=== PATIENT | male | born 1990 ===

== ENCOUNTER 2018-02-09 02:34 | Emergency (ER) | payer OTHER ==
[2018-02-09] MEDS ORDERED: Naproxen 550 mg Tab PO STA (03:10)
--- NOTE | 2018-02-09 03:12 | C.PDOC ---
History Of Present Illness 27 y/o male presents to the ED complaining of low back pain near the tailbone, onset 2 hours ago. Patient states he felt he injured the area while heavy lifting at work. Denies any fever, chills, incontinence of bowel or bladder, or focal weakness of extremities. PMD: none Time Seen by Provider: 02/09/18 03:02 Chief Complaint (Nursing): Back Pain History Per: Patient History/Exam Limitations: no limitations Onset/Duration Of Symptoms: Hrs (x2) Current Symptoms Are (Timing): Still Present Past Medical History Reviewed: Historical Data, Nursing Documentation, Vital Signs Vital Signs: Last Vital Signs Temp 98.8 F 02/09/18 02:44 Pulse 75 02/09/18 02:44 Resp 20 02/09/18 02:44 BP 142/81 02/09/18 02:44 Pulse Ox 100 02/09/18 03:14 - Medical History PMH: No Chronic Diseases Surgical History: No Surg Hx Family History: States: Unknown Family Hx - Social History Hx Alcohol Use: No Hx Substance Use: No Review Of Systems Except As Marked, All Systems Reviewed And Found Negative. Constitutional: Negative for: Fever, Chills Genitourinary: Negative for: Incontinence Musculoskeletal: Positive for: Back Pain Neurological: Negative for: Weakness, Numbness Physical Exam - Physical Exam Appears: Non-toxic, No Acute Distress Skin: Normal Color, Warm, Dry Head: Atraumatic, Normacephalic Eye(s): bilateral: Normal Inspection, PERRL, EOMI Nose: Normal Oral Mucosa: Moist Neck: Normal ROM, Supple Chest: Symmetrical Cardiovascular: Rhythm Regular, No Murmur Respiratory: Normal Breath Sounds, No Accessory Muscle Use Gastrointestinal/Abdominal: Soft, No Tenderness, No Distention Back: Vertebral Tenderness (mild tenderness to lumbar spine near coccyx area), No Paraspinal Tenderness, Other (No deformity) Extremity: Bilateral: Atraumatic, Normal Color And Temperature, Normal ROM Neurological/Psych: Oriented x3, Normal Speech, Normal Motor, Normal Sensation, No Other (focal deficits) ED Course And Treatment O2 Sat by Pulse Oximetry: 100 (RA) Pulse Ox Interpretation: Normal Medical Decision Making Medical Decision Making: Time: 03:10 Initial Plan: * Urinalysis * Naproxen 550 mg PO * X-ray Sacrum/Coccyx Disposition Counseled Patient/Family Regarding: Diagnosis - Disposition Referrals: [facility] [Outside] Disposition: HOME/ ROUTINE Disposition Time: 04:34 Condition: STABLE Prescriptions: Naproxen 375 mg PO TIDPC #20 tablet Instructions: Low Back Pain in Adults Forms: [facility] ([place]) - POA Present On Arrival: None - Clinical Impression Clinical Impression: Low back pain - Scribe Statement The provider has reviewed the documentation as recorded by the Scribe (Elva Pfeiffer) Provider Attestation: All medical record entries made by the Scribe were at my direction and personally dictated by me. I have reviewed the chart and agree that the record accurately reflects my personal performance of the history, physical exam, medical decision making, and the department course for this patient. I have also personally directed, reviewed, and agree with the discharge instructions and disposition.
[2018-02-09] MEDS ORDERED: Naproxen 550 mg Tab PO ONE (03:20)
[2018-02-09 04:50] VITALS: BP 128/76; PULSE 70; RESP 18; TEMP 98.9; O2SAT 97
[2018-02-09 05:05] LABS: SQUAMOUS EPITHIAL < 1 /hpf (0-5); URINE BILIRUBIN NEGATIVE (NEGATIVE); URINE BLOOD NEGATIVE (NEGATIVE); URINE CLARITY Clear (Clear); URINE COLOR Yellow (YELLOW); URINE GLUCOSE (UA) NORMAL (Normal); URINE LEUKOCYTE ESTERASE NEG Leu/uL (Negative); URINE PROTEIN NEGATIVE (NEGATIVE); URINE UROBILINOGEN NORMAL mg/dL (0.2-1.0)
--- NOTE | 2018-02-09 15:34 | RAD ---
PROCEDURE: Radiographs of the Sacrum and Coccyx HISTORY: injury/pain COMPARISON: None available. TECHNIQUE: Frontal and lateral views of the sacrum and coccyx FINDINGS: BONES: Sacrum and coccyx unremarkable. No fracture or focal lesion. SACROILIAC JOINTS: Unremarkable. OTHER FINDINGS: None. IMPRESSION: Unremarkable radiographs of the sacrum and coccyx.
== END 2018-02-09 05:16 | disposition home or self-care (01) ==
LOC: C.ER 02:34
DX: M54.5 Low back pain (principal)